=== PATIENT | male | born 1970 | race Caucasian/White ===

== ENCOUNTER 2021-05-15 08:56 | Emergency (ER) | payer OTHER ==
[~2021-05-15] VITALS: Ht 177.8 cm; Wt 129.3 kg
--- NOTE | 2021-05-15 09:05 | NUR ---
Placed in room 6 . Placed on quality assurance monitor chassis, blood pressure machine and pulse oximeter. To gown for exam. Side rails up. Report given to DARLING Gomez.
[2021-05-15 09:06] VITALS: BP_SYST 165
--- NOTE | 2021-05-15 09:10 | NUR ---
Pt came to ER for R back and flank rash. Pt states rash has been spreading over the course of a few days, rates pain 3/10, currently resting in [facility] at this time, VSS.
--- NOTE | 2021-05-15 09:20 | NUR ---
ER at bedside examining patient.
[2021-05-15] MEDS ORDERED: ALBMDI INH (09:26)
[2021-05-15] MEDS ORDERED: GABA-529 PO (09:26)
[2021-05-15] MEDS ORDERED: IBUP-1969 PO (09:26)
[2021-05-15] MEDS ORDERED: ACYC-133 PO (09:26)
[2021-05-15] MEDS ORDERED: LIDO1ADH6 TP (09:26)
--- NOTE | 2021-05-15 09:47 | NUR ---
Patient given written and verbal discharge instructions and verbalizes understanding. ER MD discussed with patient the results and treatment provided. Patient in stable condition. ID arm band removed. Rx of Lidocaine Patch, Acyclovir, Albuterol, Gabapentin, Ibuprofen given. Patient educated on pain management and to follow up with PMD. Pain Scale 0/10. Opportunity for questions provided and answered. Medication side effect fact sheet provided.
== END 2021-05-15 09:47 | disposition home or self-care (01) ==
LOC: SED 08:56
DX: B02.9 Zoster without complications (principal); I10 Essential (primary) hypertension; J44.9 Chronic obstructive pulmonary disease, unspecified; Z79.899 Other long term (current) drug therapy
CPT/HCPCS: 99283